=== PATIENT | male | born 1985 | race American Indian/Alaskan Native ===

== ENCOUNTER 2017-10-07 20:30 | Emergency (ER) | payer BC ==
[2017-10-07 21:37] LABS: Bacteria,Urine 1+ /HPF (Negative); Bilirubin,Urine NEG (Negative); Blood,Urine NEG (Negative); Ketones,Urine NEG (Negative); Leukocyte Esterase,Urine SM (Negative); Mucus,Urine 1+ /HPF; Nitrite,Urine NEG (Negative); Protein,Urine <15 mg/dL mg/dL (Negative)
--- NOTE | 2017-10-07 22:44 | Emergency Department Report ---
ED Male HPI - General Chief complaint: Urogenital-Male Stated complaint: PENILE IRRITATION; LT EARACHE Time Seen by Provider: 10/07/17 21:49 Source: patient Mode of arrival: Ambulatory Limitations: No Limitations - History of Present Illness Initial comments: This is a 32 y.o. male presents with irritation to pelvic area. 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 He had these symptoms for 2 weeks. Denies low abdominal pain. He is having bilateral back pain but thought it was associated with job. 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 Denies discharge, burning, or rash. He admits to unprotected intercourse with . MD Complaint: other (tingling to urethra) -: week(s) (2) Location: penis (swollen and painful) Radiation: none Severity: mild, moderate Severity scale (0 -10): 10 Quality: other (tingling) Consistency: intermittent Improves with: none Worsens with: sexual intercourse denies other symptoms. denies: discharge, swelling, mass, rash, urinary retention, blood in urine, dysuria, fever, nausea/vomiting, incontinence - Related Data Sexually active: Yes Previous Rx's Medication Instructions Recorded Last Taken Type Doxycycline [Vibramycin CAP] 100 mg PO Q12HR #14 capsule 05/09/16 Unknown Rx Allergies Allergy/AdvReac Type Severity Reaction Status Date / Time No Known Allergies Allergy Unverified 05/09/16 14:41 ED Review of Systems ROS: Stated complaint: PENILE IRRITATION; LT EARACHE Other details as noted in HPI Constitutional: no symptoms reported, see HPI. denies: chills, diaphoresis, fever, malaise, weakness Respiratory: no symptoms reported, see HPI. denies: cough, orthopnea, shortness of breath, SOB with exertion, SOB at rest, stridor, wheezing Cardiovascular: as per HPI. denies: chest pain, palpitations, dyspnea on exertion, orthopnea, edema, syncope, paroxysmal nocturnal dyspnea Gastrointestinal: as per HPI. denies: abdominal pain, nausea, vomiting, diarrhea, constipation, hematemesis, melena, hematochezia Genitourinary: as per HPI. denies: urgency, dysuria, frequency, hematuria, discharge, testicular pain, testicular mass Psychiatric: as per HPI. denies: anxiety, depression, auditory hallucinations, visual hallucinations, homicidal thoughts, suicidal thoughts ED Past Medical Hx - Past Medical History Previous Medical History?: No - Surgical History Past Surgical History?: No - Social History Smoking Status: Current Every Day Smoker Substance Use Type: Alcohol - Medications Home Medications: Home Medications Medication Instructions Recorded Confirmed Last Taken Type Doxycycline [Vibramycin CAP] 100 mg PO Q12HR #14 capsule 05/09/16 Unknown Rx ED Physical Exam - General Limitations: No Limitations General appearance: alert, in no apparent distress - Respiratory Respiratory exam: Present: normal lung sounds bilaterally. Absent: respiratory distress, wheezes, rales, rhonchi, stridor, chest wall tenderness, accessory muscle use, decreased breath sounds, prolonged expiratory - Cardiovascular Cardiovascular Exam: Present: regular rate, normal rhythm, normal heart sounds. Absent: bradycardia, tachycardia, irregular rhythm, systolic murmur, diastolic murmur, rubs, gallop, clicks, JVD, S3, S4 - GI/Abdominal GI/Abdominal exam: Present: soft, normal bowel sounds. Absent: distended, tenderness, guarding, rebound, rigid, diminished bowel sounds, hyperactive bowel sounds, hypoactive bowel sounds, organomegaly, mass, bruit, pulsatile mass , hernia - exam: Present: circumcision. Absent: testicular tenderness, urethral discharge, scrotal swelling, vertical testicular lie External exam: Present: erythema, swelling (distal swelling, erythematous, non- tender to palpation). Absent: lesions, lacerations, ecchymosis, bleeding - Psychiatric Psychiatric exam: Present: normal affect, normal mood. Absent: depressed, agitated, anxious, flat affect, manic, homicidal ideation, suicidal ideation - Skin Skin exam: Present: warm, dry, intact, normal color. Absent: rash, cyanosis, diaphoretic, erythema, urticaria, vesicles, petechiae, pallor, abrasion, ecchymosis ED Course Vital Signs 10/07/17 21:02 Temperature 98.3 F Pulse Rate 70 Respiratory 17 Rate Blood Pressure 119/61 O2 Sat by Pulse 99 Oximetry - Reevaluation(s) Reevaluation #1: 10/08/17 00:44 32 y.o. male, pelvic irritation. Denies new partner, . UA negative for UTI. Empirically treated for STI with 1 g azithromycin PO and 250 mg IM Rocephin. Call in 3-5 days for lab results. F/U with PCP. Critical care attestation.: If time is entered above; I have spent that time in minutes in the direct care of this critically ill patient, excluding procedure time. ED Disposition Clinical Impression: Exposure to STD Disposition: DC-01 TO HOME OR SELFCARE Is pt being admited?: No Does the pt Need Aspirin: No Condition: Stable Instructions: Sexually Transmitted Diseases (ED), Safe Sex (ED) Additional Instructions: Follow up with primary care provider. Referrals: JARED SILVA MD [Primary Care Provider] - 3-5 Days [facility] [Outside] - 3-5 Days [facility] [Outside] - 3-5 Days Time of Disposition: 00:48 Print Language: GREEK
[2017-10-08] MEDS ORDERED: ZITHROMAX PO ONE (00:18)
[2017-10-08] MEDS ORDERED: ROCEPHIN IM ONE (00:18)
[2017-10-08] MEDS ORDERED: XYLOCAINE 1% MPF 5 mL INFILTRATI ONE (00:18)
[2017-10-08 01:52] VITALS: BP 121/64
== END 2017-10-08 01:51 | disposition home or self-care (01) ==
LOC: ED 20:30
DX: N48.89 Other specified disorders of penis (principal); F17.200 Nicotine dependence, unspecified, uncomplicated; Z20.2 Contact with and (suspected) exposure to infections with a predominantly sexual mode of transmission
CPT/HCPCS: 36415; 81001; 87255; 87591; 96372; 99283; J0696